=== PATIENT | female | born 1985 | race Caucasian/White ===

== ENCOUNTER 2018-01-02 10:27 | Emergency (ER) | payer OTHER ==
[~2018-01-02 10:27] MED LIST: AZIT-18 PO; BENZ100C4 PO; CLIN300C99 PO; ETON68IM SQ; GUAI-545 PO; HYDR-653 PO; IBUP800T37 PO; MOMR ENA; ONDA4TAB97 PO; OXYC-854 PO; PANT40SU3 PO; PROM12.556 PO; PROM5SYR PO; PSEU120T69 PO
--- NOTE | 2018-01-02 10:30 | ER Report ---
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 Patient reports that the rack likely struck her in the lower part of the eye causing pain and inability to open the eye. Initially, visual acuity wasn't able to be assessed due to patient level of pain. There is no other obvious signs of trauma to the face. REVIEW OF SYSTEMS: Eyes: + right eye pain, mild edema ENT: [No sore throat.] Cardiovascular: [No chest pain, no palpitations.] Respiratory: [No cough, no shortness of breath.] Gastrointestinal: [No abdominal pain, no vomiting.] Genitourinary: [No hematuria.] Musculoskeletal: [No back pain.] Skin: [No rashes.] Neurological: [No headache.] Allergies: Coded Allergies: cephalexin (Verified Allergy, Intermediate, RASH, 01/02/18) Penicillins (Verified Allergy, Mild, UNKNOWN, 01/02/18) Home Meds Active Scripts Ondansetron Hcl (ZOFRAN) 4 Mg Tablet, 4 MG PO Q8H for Nausea, #15 TAB 0 Refills Prov:WALLACE LEVY MD 10/05/16 Pantoprazole Sodium (PROTONIX) 40 Mg Granpkt.dr, 40 MG PO QDAY for 30 Days, #30 TAB 0 Refills Prov:WALLACE LEVY MD 10/05/16 Oxycodone Hcl/Acet 5/325 Mg (ENDOCET 5-325 TABLET) 1 Each Tablet, 1 EACH PO Q6H for PAIN, #4 TAB 0 Refills Prov:WALLACE LEVY MD 10/05/16 Ibuprofen (IBUPROFEN) 800 Mg Tablet, 800 MG PO Q8H, #20 TAB 0 Refills Prov:MARCY FINCH DO 05/12/16 Hydrocodone Bit/Acetaminophen (NORCO 5-325 TABLET) 1 Each Tablet, 1 EACH PO Q4- 6H PRN for PAIN, #20 TAB 0 Refills Prov:MARCY FINCH DO 05/12/16 Reported Medications Citalopram Hydrobromide (CELEXA) 10 Mg Tablet, 10 MG PO QDAY, #5 TAB 10/29/18 Clindamycin Hcl (CLINDAMYCIN HCL) 300 Mg Capsule, 300 MG PO QID, #40 CAPSULE 05/10/16 Discontinued Reported Medications Etonogestrel (NEXPLANON) 68 Mg Implant, 68 MG SQ DIRECTED, IMPLANT 01/12/15 Hx Smoking: No Smoking Status: Never Smoker Exposure to Second Hand Smoke?: Yes (childhood) Hx Substance Use Disorder: No Hx Alcohol Use: Yes (occ) Constitutional Vital Sign - Last 24 Hours 01/02/18 10:31 Temp 98.9 Pulse 77 Resp 14 B/P (MAP) 124/66 Pulse Ox 95 O2 Delivery Room Air Physical Exam General Appearance: The patient is alert, has no immediate need for airway protection and no signs of toxicity. mild distress Eyes: + pain right eye, tearing ENT, Mouth: Mucous membranes are moist. Neurological: No cranial nerve deficits Skin: Warm and dry, no rashes. DIFFERENTIAL DIAGNOSIS: After history and physical exam differential diagnosis was considered for retrobulbar hemorrhage, corneal abrasion, intraocular pressure increase, retinal hemorrhage, vitreous hemorrhage Medical Decision Making EKG/Imaging Imaging ORBITS W/O CONTRAST HISTORY: right eye trauma, r/o retrobulbar hem COMPARISON STUDIES: none TECHNIQUE: Axial images were obtained through the orbits without intravenous contrast. Coronal reformatted images were obtained from the axial source data. One of the following dose optimization techniques was utilized in the performance of this exam: Automated exposure control; adjustment of the mA and/or kV according to the patient's size; or use of an iterative reconstruction technique. Specific details can be referenced in the facility's radiology CT exam operational policy. CONTRAST: None FINDINGS: The examination demonstrates no evidence of fracture of the orbits. Specifically, there is no evidence of orbital floor fracture. The pterygoid plates are intact. There is no evidence of fracture of the zygomatic processes. The globes are unremarkable in appearance. There is no evidence of abnormality of the extraocular muscles. There is no evidence of fluid collection within the orbits. The intraconal fat is unremarkable bilaterally. There is no evidence of enlargement of the superior ophthalmic veins. The visualized intracranial anatomy is unremarkable. IMPRESSION: No significant abnormality identified. The orbits are unremarkable bilaterally. ED Course/Re-evaluation ED Course Patient is a 32-year-old female here status post trauma to the right knee. Patient reportedly struck her eye on a rack while at work today shortly prior to arrival. Patient was noted to have visual acuity of 20/100 in the right eye after proparacaine fluorescein stain was applied. No corneal abrasions were visualized on [place] lamp examination. Intraocular pressure was found to be 10 on examination. Patient was noted to have significant amount of pain behind the eye per patient report though her extraocular muscles were intact she had significant pain with this examination as well. She reported continued blurred vision and a CT scan of the orbits was completed to rule out retrobulbar hemorrhage. CT was negative. I discussed the patient with Dr. Em's office to set up an appointment for 1400. Patient was given an eye patch for protection Decision to Disposition Date: Jan 02, 2018 Decision to Disposition Time: 12:32 Depart Departure Latest Vital Signs Vital Signs Date Time Temp Pulse Resp B/P (MAP) Pulse Ox O2 Delivery O2 Flow Rate FiO2 01/02/18 10:31 98.9 77 14 124/66 95 Room Air Impression: Primary Impression: Eye trauma Condition: Improved Disposition: HOME OR SELF-CARE Departure Forms: ER Transition Record, Medications Reconciliation, Off Work/School Form, School or Work Release?: Work Number of days to be released: 1 Patient Portal Information Patient Instructions: Eye Pain (GEN) Additional Instructions: Please follow-up with Dr. Em at 2 PM. Their phone number is [phone]. Please return promptly if you develop worsening pain, inability to move her eye, increased headache, facial droop. EYAD MARSH DO Jan 02, 2018 10:30
[2018-01-02] MEDS ORDERED: CITA-155 PO (10:35)
[2018-01-02] MEDS ORDERED: PROPARACAI/FLUORESCEIN 5 ML OP DROPS OP ONE (10:40)
[2018-01-02] MEDS ORDERED: IBUPROFEN 800 MG TAB PO ONE (11:50)
--- NOTE | 2018-01-02 12:12 | RADIOLOGY IMAGING REPORT ---
FACILITY: [facility] - [place], [place] PATIENT NAME: Tri Chi : 1985 MR: [id number] V: [id number] EXAM DATE: ORDERING PHYSICIAN: EYAD MARSH TECHNOLOGIST: Location: [facility] Patient: Tri Chi : 1985 Visit/Account:[id number] Date of Sevice: 01/02/2018 ORBITS W/O CONTRAST HISTORY: right eye trauma, r/o retrobulbar hem COMPARISON STUDIES: none TECHNIQUE: Axial images were obtained through the orbits without intravenous contrast. Coronal refo rmatted images were obtained from the axial source data. One of the following dose optimization techniques was utilized in the performance of this exam: Autom ated exposure control; adjustment of the mA and/or kV according to the patient's size; or use of an i terative reconstruction technique. Specific details can be referenced in the facility's radiology C T exam operational policy. CONTRAST: None FINDINGS: The examination demonstrates no evidence of fracture of the orbits. Specifically, there is no eviden ce of orbital floor fracture. The pterygoid plates are intact. There is no evidence of fracture of the zygomatic processes. The globes are unremarkable in appearance. There is no evidence of abnormality of the extraocular mu scles. There is no evidence of fluid collection within the orbits. The intraconal fat is unremarkab le bilaterally. There is no evidence of enlargement of the superior ophthalmic veins. The visualized intracranial anatomy is unremarkable. IMPRESSION: No significant abnormality identified. The orbits are unremarkable bilaterally. Report Dictated By: Krishna Arce at 01/02/2018 12:04 PM Report E-Signed By: Krishna Arce at 01/02/2018 12:07 PM WSN:[id number]
[2018-01-02 12:33] VITALS: BP 120/73
== END 2018-01-02 12:27 | disposition home or self-care (01) ==
LOC: ER 10:45
DX: H57.11 Ocular pain, right eye (principal); W22.8XXA Striking against or struck by other objects, initial encounter
CPT/HCPCS: 70480; 99284

== ENCOUNTER 2018-01-24 15:40 | Emergency (ER) | payer OTHER ==
[~2018-01-24 15:40] MED LIST changes: +CITA-155 PO
[2018-01-24] MEDS ORDERED: NS(*) 0.9% 1000 ML BAG 1,000 ML IV ONE (15:50)
[2018-01-24] MEDS ORDERED: MORPHINE 4 MG/ML SDV IVP ONE (15:50)
[2018-01-24] MEDS ORDERED: ONDANSETRON 4 MG/2 ML VIAL IVP ONE (15:55)
--- NOTE | 2018-01-24 15:55 | ER Report ---
History and Physical Time Seen By MD: 15:45 Hx. of Stated Complaint: ABD PAIN (WALLACE SAMPSON MD) HPI/ROS CHIEF COMPLAINT: Abdominal pain HISTORY OF PRESENT ILLNESS: 32-year-old female developed vomiting last night 2 and initial onset of abdominal pain which was much worse today. She has not had pain like this before. Pain is throughout abdomen and dull pressure. She had one episode of diarrhea and one episode of vomiting this morning. No bloody or black. Pain is 8 out of 10. Does not radiate to back or chest. No prior abdominal surgeries other than tubal ligation. No UTI symptoms. Last menstrual period was 2 days ago and was regular. No fevers, chills, shortness breath, chest pain. Pt was at physician this am for general eval. REVIEW OF SYSTEMS: Constitutional: No fever, no chills. Eyes: No discharge. ENT: No sore throat. Cardiovascular: No chest pain, no palpitations. Respiratory: No cough, no shortness of breath. Gastrointestinal: above Genitourinary: no dysuria Musculoskeletal: No back pain. Skin: No rashes. Neurological: No headache. Remainder of the 14 system rev: Yes (WALLACE SAMPSON MD) Allergies: Coded Allergies: cephalexin (Verified Allergy, Intermediate, RASH, 01/02/18) Penicillins (Verified Allergy, Mild, UNKNOWN, 01/02/18) Home Meds Active Scripts Ondansetron Hcl (ZOFRAN) 4 Mg Tablet, 4 MG PO Q8H for Nausea, #15 TAB 0 Refills Prov:WALLACE LEVY MD 10/05/16 Reported Medications Citalopram Hydrobromide (CELEXA) 10 Mg Tablet, 10 MG PO QDAY, #5 TAB 01/02/18 Discontinued Reported Medications Clindamycin Hcl (CLINDAMYCIN HCL) 300 Mg Capsule, 300 MG PO QID, #40 CAPSULE 05/10/16 Discontinued Scripts Pantoprazole Sodium (PROTONIX) 40 Mg Granpkt.dr, 40 MG PO QDAY for 30 Days, #30 TAB 0 Refills Prov:WALLACE LEVY MD 10/05/16 Oxycodone Hcl/Acet 5/325 Mg (ENDOCET 5-325 TABLET) 1 Each Tablet, 1 EACH PO Q6H for PAIN, #4 TAB 0 Refills Prov:WALLACE LEVY MD 10/05/16 Ibuprofen (IBUPROFEN) 800 Mg Tablet, 800 MG PO Q8H, #20 TAB 0 Refills Prov:MARCY FINCH DO 05/12/16 Hydrocodone Bit/Acetaminophen (NORCO 5-325 TABLET) 1 Each Tablet, 1 EACH PO Q4- 6H PRN for PAIN, #20 TAB 0 Refills Prov:MARCY FINCH DO 05/12/16 Hx Smoking: No Smoking Status: Never Smoker Exposure to Second Hand Smoke?: Yes (childhood) Hx Substance Use Disorder: No Hx Alcohol Use: Yes (occ) (WALLACE SAMPSON MD) Constitutional Vital Sign - Last 24 Hours 01/24/18 01/24/18 01/24/18 01/24/18 15:45 15:46 16:00 16:10 Temp 99.7 Pulse 95 75 Resp 16 B/P (MAP) 123/84 (97) 123/84 93/73 (80) Pulse Ox 97 100 O2 Delivery Room Air 01/24/18 01/24/18 01/24/18 01/24/18 16:30 16:40 17:08 17:10 Pulse 75 70 B/P (MAP) 95/61 (72) 98/54 (69) Pulse Ox 90 93 01/24/18 01/24/18 01/24/18 01/24/18 17:15 17:33 17:45 17:50 Pulse 69 65 ??? B/P (MAP) 99/58 (72) Pulse Ox 94 94 01/24/18 01/24/18 01/24/18 01/24/18 18:00 18:05 18:20 18:30 Pulse 64 60 B/P (MAP) 100/55 (70) 100/56 (71) Pulse Ox 94 94 01/24/18 01/24/18 01/24/18 01/24/18 18:35 18:50 19:00 19:05 Pulse 59 71 67 B/P (MAP) 84/50 (61) Pulse Ox 93 94 93 01/24/18 01/24/18 01/24/18 19:20 19:26 19:53 Temp 99.1 Pulse 59 B/P (MAP) 103/61 (75) Pulse Ox 95 (RAINA GAMINO MD) Physical Exam General Appearance: The patient is alert, has no immediate need for airway protection and no signs of toxicity. Pt tearful. Eyes: Pupils equal and round no pallor or injection. ENT, Mouth: Mucous membranes are moist. Respiratory: There are no retractions, lungs are clear to auscultation. Cardiovascular: Regular rate and rhythm. Gastrointestinal: ttp throughout, guarding, not distended, no massess. RUQ ttp with equivocal apple's, rlq ttp, l side ttp Neurological: alert, oriented, nad Skin: Warm and dry, no rashes. Musculoskeletal: Extremities are nontender, nonswollen and have full range of motion. Pelvic exam - slight discharge, mild cmt, l > r adnex ttp DIFFERENTIAL DIAGNOSIS: After history and physical exam differential diagnosis was considered for abdominal pain including but not limited to appendicitis, cholecystitis, gastritis and urinary tract infection. (WALLACE SAMPSON MD) Medical Decision Making Data Points Result Diagram: 01/24/18 1603 01/24/18 1603 Laboratory Hematology Test 01/24/18 16:03 01/24/18 17:31 01/24/18 17:50 Red Blood Count 4.88 M/uL (4.17-5.56) Mean Corpuscular Volume 88.0 fL (80.0-96.0) Mean Corpuscular Hemoglobin 30.4 pg (26.0-33.0) Mean Corpuscular Hemoglobin Concent 34.6 g/dL (32.0-36.0) Red Cell Distribution Width 13.1 % (11.5-14.5) Mean Platelet Volume 7.9 fL (7.2-11.1) Neutrophils (%) (Auto) 73.1 % (39.4-72.5) Lymphocytes (%) (Auto) 18.3 % (17.6-49.6) Monocytes (%) (Auto) 7.6 % (4.1-12.4) Eosinophils (%) (Auto) 0.4 % (0.4-6.7) Basophils (%) (Auto) 0.6 % (0.3-1.4) Nucleated RBC Relative Count (auto) 0.0 /100WBC Neutrophils # (Auto) 3.5 K/uL (2.0-7.4) Lymphocytes # (Auto) 0.9 K/uL (1.3-3.6) Monocytes # (Auto) 0.4 K/uL (0.3-1.0) Eosinophils # (Auto) 0.0 K/uL (0.0-0.5) Basophils # (Auto) 0.0 K/uL (0.0-0.1) Nucleated RBC Absolute Count (auto) 0.00 K/uL Prothrombin Time 13.5 seconds (12.0-14.4) Prothromb Time International Ratio 1.03 Activated Partial Thromboplast Time 32 seconds (23-35) Sodium Level 138 mmol/L (137-145) Potassium Level 4.1 mmol/L (3.5-5.0) Chloride Level 102 mmol/L (98-107) Carbon Dioxide Level 24 mmol/L (22-31) Blood Urea Nitrogen 15 mg/dl (7-18) Creatinine 0.90 mg/dl (0.52-1.04) Glomerular Filtration Rate Calc > 60.0 Random Glucose 80 mg/dl (75-110) Calcium Level 8.9 mg/dl (8.4-10.2) Total Bilirubin 1.3 mg/dl (0.2-1.3) Aspartate Amino Transf (AST/SGOT) 25 U/L (0-35) Alanine Aminotransferase (ALT/SGPT) 35 U/L (0-56) Alkaline Phosphatase 61 U/L (0-126) Total Protein 7.9 g/dl (6.3-8.2) Albumin 4.2 g/dl (3.5-5.0) Lipase 42 U/L (23-300) Human Chorionic Gonadotropin, Qual Negative (NEGATIVE) Urine Color Yellow Urine Clarity Clear Urine pH 5.0 pH (4.8-9.5) Urine Specific [place] 1.056 Urine Protein Negative mg/dL (NEGATIVE) Urine Glucose (UA) Negative mg/dL (NEGATIVE) Urine Ketones 20 mg/dL (NEGATIVE) Urine Blood Negative (NEGATIVE) Urine Nitrite Negative (NEGATIVE) Urine Bilirubin Negative (NEGATIVE) Urine Urobilinogen Negative mg/dL (0.2-1.9) Urine Leukocyte Esterase Negative (NEGATIVE) Urine RBC None /HPF (0-2/HPF) Urine WBC 1 /HPF (0-5/HPF) Urine Squamous Epithelial Cells Many /LPF (</=FEW) Urine Bacteria Negative /HPF (NONE-FEW) Urine Mucus None /HPF (NONE-FEW) Chemistry Test 11/20/18 16:03 01/24/18 17:31 01/24/18 17:50 White Blood Count 4.8 k/uL (4.5-11.0) Red Blood Count 4.88 M/uL (4.17-5.56) Hemoglobin 14.9 g/dL (12.0-16.0) Hematocrit 42.9 % (34.0-47.0) Mean Corpuscular Volume 88.0 fL (80.0-96.0) Mean Corpuscular Hemoglobin 30.4 pg (26.0-33.0) Mean Corpuscular Hemoglobin Concent 34.6 g/dL (32.0-36.0) Red Cell Distribution Width 13.1 % (11.5-14.5) Platelet Count 184 K/uL (150-450) Mean Platelet Volume 7.9 fL (7.2-11.1) Neutrophils (%) (Auto) 73.1 % (39.4-72.5) Lymphocytes (%) (Auto) 18.3 % (17.6-49.6) Monocytes (%) (Auto) 7.6 % (4.1-12.4) Eosinophils (%) (Auto) 0.4 % (0.4-6.7) Basophils (%) (Auto) 0.6 % (0.3-1.4) Nucleated RBC Relative Count (auto) 0.0 /100WBC Neutrophils # (Auto) 3.5 K/uL (2.0-7.4) Lymphocytes # (Auto) 0.9 K/uL (1.3-3.6) Monocytes # (Auto) 0.4 K/uL (0.3-1.0) Eosinophils # (Auto) 0.0 K/uL (0.0-0.5) Basophils # (Auto) 0.0 K/uL (0.0-0.1) Nucleated RBC Absolute Count (auto) 0.00 K/uL Prothrombin Time 13.5 seconds (12.0-14.4) Prothromb Time International Ratio 1.03 Activated Partial Thromboplast Time 32 seconds (23-35) Glomerular Filtration Rate Calc > 60.0 Calcium Level 8.9 mg/dl (8.4-10.2) Total Bilirubin 1.3 mg/dl (0.2-1.3) Aspartate Amino Transf (AST/SGOT) 25 U/L (0-35) Alanine Aminotransferase (ALT/SGPT) 35 U/L (0-56) Alkaline Phosphatase 61 U/L (0-126) Total Protein 7.9 g/dl (6.3-8.2) Albumin 4.2 g/dl (3.5-5.0) Lipase 42 U/L (23-300) Human Chorionic Gonadotropin, Qual Negative (NEGATIVE) Urine Color Yellow Urine Clarity Clear Urine pH 5.0 pH (4.8-9.5) Urine Specific [place] 1.056 Urine Protein Negative mg/dL (NEGATIVE) Urine Glucose (UA) Negative mg/dL (NEGATIVE) Urine Ketones 20 mg/dL (NEGATIVE) Urine Blood Negative (NEGATIVE) Urine Nitrite Negative (NEGATIVE) Urine Bilirubin Negative (NEGATIVE) Urine Urobilinogen Negative mg/dL (0.2-1.9) Urine Leukocyte Esterase Negative (NEGATIVE) Urine RBC None /HPF (0-2/HPF) Urine WBC 1 /HPF (0-5/HPF) Urine Squamous Epithelial Cells Many /LPF (</=FEW) Urine Bacteria Negative /HPF (NONE-FEW) Urine Mucus None /HPF (NONE-FEW) Coagulation Test 01/24/18 16:03 Prothrombin Time 13.5 seconds Prothromb Time International Ratio 1.03 Activated Partial Thromboplast Time 32 seconds Urinalysis Test 01/24/18 17:31 Urine Color Yellow Urine Clarity Clear Urine pH 5.0 pH (4.8-9.5) Urine Specific [place] 1.056 Urine Protein Negative mg/dL (NEGATIVE) Urine Glucose (UA) Negative mg/dL (NEGATIVE) Urine Ketones 20 mg/dL (NEGATIVE) Urine Blood Negative (NEGATIVE) Urine Nitrite Negative (NEGATIVE) Urine Bilirubin Negative (NEGATIVE) Urine Urobilinogen Negative mg/dL (0.2-1.9) Urine Leukocyte Esterase Negative (NEGATIVE) Urine RBC None /HPF (0-2/HPF) Urine WBC 1 /HPF (0-5/HPF) Urine Squamous Epithelial Cells Many /LPF (</=FEW) Urine Bacteria Negative /HPF (NONE-FEW) Urine Mucus None /HPF (NONE-FEW) (RAINA GAMINO MD) EKG/Imaging Imaging EXAMINATION: Transvaginal pelvic ultrasound with duplex Doppler evaluation. HISTORY: Left greater than right ovarian pain, adnexa tender to palpation. Status post tubal ligation. Pain x1 day; LMP: 01/16/2018 COMPARISON: None. FINDINGS: Uterus: 9.5 cm length x 6.0 cm transverse x 3.8 cm AP. Myometrium: Homogeneous. No focal abnormality. Endometrium: Homogeneous, 5-6 mm in greatest double thickness. Cervix: Negative. Ovaries: Right ovary 2.5 x 2.2 x 1.8 cm, multiple small follicles present Left ovary 2.4 x 2 x 1.9 cm, small follicles are present Blood flow is documented in each ovary by Doppler ultrasound. Free pelvic fluid: None. Pelvic vessels: There prominent pelvic vessels bilaterally. This can be seen in the setting of pelvic congestion syndrome. Bladder: Empty IMPRESSION: 1. Normal sonographic appearance of the ovaries. There is no dominant mass or cyst. No evidence of torsion. 2. Normal sonographic appearance of the endometrium and myometrium. 3. Prominent pelvic vessels bilaterally, this can be seen in the setting of pelvic congestion syndrome which is a chronic condition and unlikely to be the cause of the patient's acute pain. Report Dictated By: Danielle Peterson MD at 01/24/2018 7:14 PM (RAINA GAMINO MD) ED Course/Re-evaluation ED Course Pt presents with undifferentiated, sudden onset abd pain. Given ttp, ct obtained; ct unremark. Rpt eval shows primarily epigastric ttp (c/w pt's symptoms of vomiting, diarrhea, pain with water), and pelvic pain. pelvic exam shows adnex ttp L > R; will US, t/o to Dr Gamino; if neg pt reasonable for d/c (WALLACE SAMPSON MD) ED Course I assumed care of this patient from Dr. Sampson at shift change. Her ultrasound came back showing some congestion of the vasculature of the adnexa, but no other problems. I reviewed the lab results with her and recommended follow-up with gastroenterology for further evaluation. Provided Lortab and Zofran take home packs to help with pain and nausea. See instructions below. Decision to Disposition Date: Jan 24, 2018 Decision to Disposition Time: 19:41 (RAINA GAMINO MD) Depart Departure Latest Vital Signs Vital Signs Date Time Temp Pulse Resp B/P (MAP) Pulse Ox O2 Delivery O2 Flow Rate FiO2 01/24/18 19:53 99.1 01/24/18 19:26 103/61 (75) 01/24/18 19:20 59 95 01/24/18 15:46 16 Room Air (RAINA GAMINO MD) Impression: Primary Impression: Abdominal pain Condition: Improved Disposition: HOME OR SELF-CARE Referrals: GASTROENTEROLOGY Patient Instructions: Abdominal Pain (ED), Pulmonary Nodules (ED) Additional Instructions: We do not know what has been causing your abdominal pain today. Labs and imaging were negative for a cause of acute pain. Rest, increase fluids and stick with a bland diet until you are feeling better. Take Ibuprofen 200mg over the counter tablets as needed for pain. We will give you a couple of doses of a pain medicine called Lortab to use tonight for pain. Consider follow-up with a corporate auditor or other provider who can perform f urther evaluation such as colonoscopy. Problem Qualifiers Primary Impression: Abdominal pain Abdominal location: generalized Qualified Codes: R10.84 - Generalized abdominal pain WALLACE SAMPSON MD Jan 24, 2018 15:55 RAINA GAMINO MD Jan 24, 2018 19:04
[2018-01-24 16:13] LABS: PLATELET COUNT, AUTOMATED 184 K/uL (150-450)
[2018-01-24 16:18] LABS: INR 1.03
--- NOTE | 2018-01-24 16:30 | RADIOLOGY IMAGING REPORT ---
FACILITY: [facility] PATIENT NAME: Tri Chi : 1985 MR: [id number] V: [id number] EXAM DATE: ORDERING PHYSICIAN: WALLACE SAMPSON TECHNOLOGIST: Location: [facility] - [place] Patient: Tri Chi : 1985 Visit/Account:[id number] Date of Sevice: 01/24/2018 EXAMINATION: Portable AP Chest HISTORY: Shortness of breath COMPARISON: 06/27/2015. FINDINGS: The lungs are clear. No focal consolidation or pleural effusion. No pneumothorax. Normal cardiomedi astinal silhouette, with normal heart size and pulmonary vascularity. Visualized osseous structures are unremarkable. IMPRESSION: Negative chest. Report Dictated By: Sammy Burton MD at 01/24/2018 4:25 PM Report E-Signed By: Sammy Burton MD at 01/24/2018 4:26 PM WSN:[id number]
[2018-01-24] MEDS ORDERED: IOPAMIDOL 76% 75 ML INFUS BTL 75 ML ONE (16:47)
--- NOTE | 2018-01-24 17:37 | RADIOLOGY IMAGING REPORT ---
FACILITY: [facility] - [place] PATIENT NAME: Tri Chi : 1985 MR: [id number] V: [id number] EXAM DATE: ORDERING PHYSICIAN: WALLACE SAMPSON TECHNOLOGIST: Location: [facility] Patient: Tri Chi : 1985 Visit/Account:[id number] Date of Sevice: 01/24/2018 ABDOMEN/PELVIS WITH CONTRAST HISTORY: Pain throughout abdomen, nonlocalizing but includes the right lower quadrant TECHNIQUE: Following administration of IV contrast contiguous axial images acquired through the abdom en/pelvis. Coronal and sagittal reformatting also performed.Dose Lowering Technique One of the following dose optimization techniques was utilized in the performance of this exam: Autom ated exposure control; adjustment of the mA and/or kV according to the patient's size; or use of an i terative reconstruction technique. Specific details can be referenced in the facility's radiology C T exam operational policy. CONTRAST: 75 mL [id number] COMPARISON: Abdomen ultrasound February 26, 2016 FINDINGS: Visualized lung bases: There is a 3 mm subpleural noncalcified nodule anterior aspect right middle l obe best seen on image 26 of series 3. The 3 mm noncalcified subpleural nodule lateral aspect of the left lower lobe best seen on image 40 Hepatobiliary: Negative. Spleen: Negative. Adrenals: Negative. Pancreas: Negative. Kidneys ureters or bladder: Negative. Genitalia: Tubal ligation clips are present GI: The appendix is visualized and does not appear inflamed. There is no evidence of bowel obstruct ion or bowel wall thickening Vessels/spaces/nodes: Negative. Bones/soft tissues: Incidental Schmorl's nodes in the lower thoracic spine Additional findings: None pertinent. IMPRESSION: There are two 3 mm subpleural nodules, one in the right middle lobe and one in the left lower lobe as described For multiple nodules measuring less than 6 mm, in a low risk patient (minimal or absent sm oking history, no history of malignancy), no routine followup is recommended. In a high risk patient (smoking or malignancy history), optional 12 month followup can be obtained. Otherwise unremarkable CT of abdomen and pelvis. Specifically the appendix does not appear inflamed Report Dictated By: Juliette Aleman MD at 01/24/2018 5:26 PM Report E-Signed By: Juliette Aleman MD at 01/24/2018 5:34 PM WSN:[id number]
[2018-01-24] MEDS ORDERED: LIDOCAINE 2% VISC SLN 15ML UDC PO ONE (17:45)
[2018-01-24] MEDS ORDERED: MAG HYD/AL HYD/SIMETH 30ML UDC PO ONE (17:45)
--- NOTE | 2018-01-24 19:23 | RADIOLOGY IMAGING REPORT ---
FACILITY: [facility] PATIENT NAME: Tri Chi : 1985 MR: [id number] V: [id number] EXAM DATE: ORDERING PHYSICIAN: WALLACE SAMPSON TECHNOLOGIST: Location: [facility] Patient: Tri Chi : 1985 Visit/Account:[id number] Date of Sevice: 01/24/2018 EXAMINATION: Transvaginal pelvic ultrasound with duplex Doppler evaluation. HISTORY: Left greater than right ovarian pain, adnexa tender to palpation. Status post tubal ligati on. Pain x1 day; LMP: 01/16/2018 COMPARISON: None. FINDINGS: Uterus: 9.5 cm length x 6.0 cm transverse x 3.8 cm AP. Myometrium: Homogeneous. No focal abnormality. Endometrium: Homogeneous, 5-6 mm in greatest double thickness. Cervix: Negative. Ovaries: Right ovary 2.5 x 2.2 x 1.8 cm, multiple small follicles present Left ovary 2.4 x 2 x 1.9 cm , small follicles are present Blood flow is documented in each ovary by Doppler ultrasound. Free pelvic fluid: None. Pelvic vessels: There prominent pelvic vessels bilaterally. This can be seen in the setting of pelvic congestion syndrome. Bladder: Empty IMPRESSION: 1. Normal sonographic appearance of the ovaries. There is no dominant mass or cyst. No evidence of to rsion. 2. Normal sonographic appearance of the endometrium and myometrium. 3. Prominent pelvic vessels bilaterally, this can be seen in the setting of pelvic congestion syndrom e which is a chronic condition and unlikely to be the cause of the patient's acute pain. Report Dictated By: Danielle Peterson MD at 01/24/2018 7:14 PM Report E-Signed By: Danielle Peterson MD at 01/24/2018 7:19 PM WSN:[id number]
[2018-01-24 19:26] VITALS: BP 103/61
[2018-01-24] MEDS ORDERED: ACET/HYDROC 5/325MG TH ER ONLY 2 TAB/BOTTLE PO ONE (19:55)
[2018-01-24] MEDS ORDERED: ONDANSETRON 4 MG ODT TH SL ONE (20:00)
[2018-01-24] MEDS ORDERED: ONDANSETRON 4 MG ODT TABDP SL ONE (20:04)
== END 2018-01-24 20:10 | disposition home or self-care (01) ==
LOC: ER 15:51
DX: R10.84 Generalized abdominal pain (principal)
CPT/HCPCS: 71045; 81001; 83690; 84703; 85025; 85610; 85730; 87491; 87591; 96361; 96374; 96375; 99284; J2270; J2405; J7030; Q9967; S0119; 74177; 76830; 82040; 82247; 82310; 82374; 82435; 82565; 82947; 84075; 84132; 84155; 84295; 84450; 84460; 84520

== ENCOUNTER 2018-04-25 11:41 | Emergency (ER) | payer OTHER ==
--- NOTE | 2018-04-25 12:46 | ER Report ---
History and Physical Time Seen By MD: 11:42 Hx. of Stated Complaint: pt cut left middle finger on knife HPI/ROS CHIEF COMPLAINT: Cut finger with a knife HISTORY OF PRESENT ILLNESS: 33 year old female presents to ED with avulsion to left middle finger on de la cruz surface of distal phalynx. Patient reports that she cut it while cutting sweet potatoes. 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 Reports that this happened approximately 20 minutes ago. Reports pain is 6-7 out of 10. Denies talking anything for the pain. REVIEW OF SYSTEMS: Respiratory: [No cough, no dyspnea.] Cardiovascular: [No chest pain, no palpitations.] Gastrointestinal: [No nausea, vomiting, no abdominal pain.] Musculoskeletal: [No back pain.] Integumentary: Bleeding of palmar surface of distal phalynx of left middle finger due to avulsion. Reports decreased mobility of distal interphalangeal joint due to pain and swelling. Allergies: Coded Allergies: cephalexin (Verified Allergy, Intermediate, RASH, 01/02/18) Penicillins (Verified Allergy, Mild, UNKNOWN, 01/02/18) Home Meds Active Scripts Sulfamethoxazole/Trimet 800-160 Mg Tab (BACTRIM DS TABLET) 1 Each Tablet, 1 TAB PO Q12H, #14 TAB Prov:LEA COFFEY 04/25/18 Ondansetron Hcl (ZOFRAN) 4 Mg Tablet, 4 MG PO Q8H for Nausea, #15 TAB 0 Refills Prov:WALLACE LEVY MD 10/05/16 Reported Medications Citalopram Hydrobromide (CELEXA) 10 Mg Tablet, 10 MG PO QDAY, #5 TAB 01/02/18 Past Medical/Surgical History Patient reports hx of tubal ligation in 2016. Last tetanus vaccination was in 2011. Reviewed Nurses Notes: Yes Old Medical Records Reviewed: Yes Hx Smoking: No Smoking Status: Never Smoker Exposure to Second Hand Smoke?: Yes (childhood) Hx Substance Use Disorder: No Hx Alcohol Use: Yes (occ) Constitutional Vital Sign - Last 24 Hours 04/25/18 04/25/18 11:46 13:00 Temp 98.1 Pulse 75 Resp 16 B/P (MAP) 130/76 128/76 (93) Pulse Ox 94 O2 Delivery Room Air Physical Exam General Appearance: The patient is alert, has no immediate need for airway protection and no current signs of toxicity. Respiratory: Chest is non tender, lungs are clear to auscultation. Cardiac: regular rate and rhythm Gastrointestinal: Abdomen is soft and non tender, no masses, bowel sounds normal. Musculoskeletal: Left middle finger with erythema at the distal phalynx. Extremities have full range of motion and are non tender. Skin: Avulsion of skin to left middle finger. Avulsion is circular, approximately 0.5cm in diameter with cut down to the subcutaneous tissue. Bleeding has lessened since patient has been here, however, bleeding increases with movement of the finger and touching the wound. Reports decreased sensation with pin prick on the distal end of the finger. DIFFERENTIAL DIAGNOSIS: After history and physical exam differential diagnosis was considered for avulsion of skin. Medical Decision Making ED Course/Re-evaluation ED Course Patient admitted to ED. History and physical were obtained. Performed review of systems and physical exam of finger. Patient has avulsion to the skin on the pad of the left 3rd finger. There is no tissue to suture. Discussed plan of care with patient. Injected lidocaine with bupivacaine to medial and lateral aspects of proximal phalynx. respiratory therapy technician cleaned wound and placed Turnicot on proximal pahlynx of middle finger. Bleeding stopped. Cautery used on wound bed to stop bleeding. Turnicot cut off. Wound dressed. Patient discharged home with prophylaxis with antibiotics, care instructions, to take tylenol/ibuprofen for pain, and to watch for s/s of infection. Decision to Disposition Date: Apr 25, 2018 Decision to Disposition Time: 13:00 Depart Departure Latest Vital Signs Vital Signs Date Time Temp Pulse Resp B/P (MAP) Pulse Ox O2 Delivery O2 Flow Rate FiO2 04/25/18 13:00 128/76 (93) 04/25/18 11:46 98.1 75 16 94 Room Air Impression: Primary Impression: Avulsion of skin of finger Condition: Improved Disposition: HOME OR SELF-CARE New Scripts Sulfamethoxazole/Trimet 800-160 Mg Tab (BACTRIM DS TABLET) 1 Each Tablet 1 TAB PO Q12H, #14 TAB Prov: LEA COFFEY ZAHRA 04/25/18 Patient Instructions: Skin Avulsion (ED) Additional Instructions: Monitor for signs of infection; redness, swelling, heat, discharge, increasing pain or red streaking. Keep wound covered for the next 4-5 days. Follow up in the ER with any concerns. Take Tylenol or Ibuprofen as needed for pain. Get plenty if rest. Keep the wound clean. Problem Qualifiers Primary Impression: Avulsion of skin of finger Encounter type: initial encounter Qualified Codes: S61.209A - Unspecified open wound of unspecified finger without damage to nail, initial encounter LEA COFFEY Apr 25, 2018 12:46
[2018-04-25] MEDS ORDERED: DIPHTH/TETANUS/ACEL. PERTUSSIS IM ONLY ONE (12:50)
[2018-04-25] MEDS ORDERED: SULF-198 PO (12:58)
[2018-04-25 13:00] VITALS: BP 128/76
== END 2018-04-25 13:23 | disposition home or self-care (01) ==
LOC: ER 11:50
DX: S61.203A Unspecified open wound of left middle finger without damage to nail, initial encounter (principal); W26.0XXA Contact with knife, initial encounter
CPT/HCPCS: 12001; 90471; 90715; 96360; 96361; 99283; 99285

== ENCOUNTER 2018-05-01 10:14 | Emergency (ER) | payer OTHER ==
[~2018-05-01 10:14] MED LIST changes: +SULF-198 PO
[2018-05-01 10:18] VITALS: BP 111/61
--- NOTE | 2018-05-01 10:19 | ER Report ---
History and Physical Time Seen By MD: 10:18 HPI/ROS CHIEF COMPLAINT: Left 3rd digit pain HISTORY OF PRESENT ILLNESS: Patient is a 33-year-old female here with complaints of left 3rd digit pain. Patient was evaluated on the for a finger laceration and was placed on Bactrim. Patient reports that the pain was improved however today she accidentally slammed her finger into a car door and then subsequently pinched the finger while at work between 2 boxes. Patient reports significant pain at the site. Patient is neurovascularly intact and hemostasis was intact. Denies further injury at this time. REVIEW OF SYSTEMS: Constitutional: No fever, no chills. Musculoskeletal: + left third digit pain Skin: No rashes. Neurological: NV intact Allergies: Coded Allergies: cephalexin (Verified Allergy, Intermediate, RASH, 01/02/18) Penicillins (Verified Allergy, Mild, UNKNOWN, 01/02/18) Home Meds Active Scripts Sulfamethoxazole/Trimet 800-160 Mg Tab (BACTRIM DS TABLET) 1 Each Tablet, 1 TAB PO Q12H, #14 TAB Prov:LEA COFFEY 04/25/18 Ondansetron Hcl (ZOFRAN) 4 Mg Tablet, 4 MG PO Q8H for Nausea, #15 TAB 0 Refills Prov:WALLACE LEVY MD 10/05/16 Reported Medications Citalopram Hydrobromide (CELEXA) 10 Mg Tablet, 10 MG PO QDAY, #5 TAB 01/02/18 Hx Smoking: No Smoking Status: Never Smoker Exposure to Second Hand Smoke?: Yes (childhood) Hx Substance Use Disorder: No Hx Alcohol Use: Yes (occ) Constitutional Vital Sign - Last 24 Hours 05/01/18 10:18 Temp 98.2 Pulse 88 Resp 16 B/P (MAP) 111/61 Pulse Ox 94 Physical Exam General Appearance: The patient is alert, has no immediate need for airway protection and no signs of toxicity. Uncomfortable appearing Neurological: Neurovascularly intact in the distal digit Skin: No rashes or active bleeding Musculoskeletal: Tenderness on palpation of the left 3rd distal digit. DIFFERENTIAL DIAGNOSIS: After history and physical exam differential diagnosis was considered for fracture, contusion, laceration Medical Decision Making EKG/Imaging Imaging Location: [facility] Patient: Tri Chi : 1985 Visit/Account:[id number] Date of Sevquinn: 05/01/2018 FINGER LEFT 3RD DIGIT Given history: Trauma COMPARISON STUDIES: NONE FINDINGS: Osseous structures: Intact without evidence of fracture . Joints: normal . Soft tissues: There is a small skin defect seen at the tip of the left third finger. No radiopaque foreign body seen. IMPRESSION: Laceration tip of the third finger. Negative for fracture. ED Course/Re-evaluation ED Course Patient is a 33-year-old female here with complaints of pain after catching her finger in a car door and then subsequently pinching it between 2 boxes today with a prior history of laceration to the finger. X-ray imaging showed no acute fracture. I performed a digital block using 4 mL of 1% lidocaine without epinephrine. Patient was neurovascularly intact. Return precautions provided Procedure Digital block of the 3rd left finger was performed using 4 mL of 1% lidocaine without epinephrine. I performed a ring block at the base of the digit. Patient tolerated procedure well. Decision to Disposition Date: May 01, 2018 Decision to Disposition Time: 11:13 Depart Departure Latest Vital Signs Vital Signs Date Time Temp Pulse Resp B/P (MAP) Pulse Ox O2 Delivery O2 Flow Rate FiO2 05/01/18 10:18 98.2 88 16 111/61 94 Impression: Primary Impression: Finger contusion Condition: Improved Disposition: HOME OR SELF-CARE Patient Instructions: Contusion in Adults (ED) Additional Instructions: No acute fractures identified on x-ray imaging. Please monitor for signs of infection. EYAD MARSH DO May 01, 2018 10:18
--- NOTE | 2018-05-01 10:53 | RADIOLOGY IMAGING REPORT ---
FACILITY: [facility] PATIENT NAME: Tri Chi : 1985 MR: [id number] V: [id number] EXAM DATE: ORDERING PHYSICIAN: EYAD MARSH TECHNOLOGIST: [place] [facility] [place] Patient: Tri Chi : 1985 Visit/Account:[id number] Date of Sevice: 05/01/2018 FINGER LEFT 3RD DIGIT Given history: Trauma COMPARISON STUDIES: NONE FINDINGS: Osseous structures: Intact without evidence of fracture . Joints: normal . Soft tissues: There is a small skin defect seen at the tip of the left third finger. No radiopaque foreign body seen. IMPRESSION: Laceration tip of the third finger. Negative for fracture. Report Dictated By: Otilio Barker MD at 05/01/2018 10:46 AM Report E-Signed By: Otilio Barker MD at 05/01/2018 10:48 AM WSN:[email or web address]
[2018-05-01] MEDS ORDERED: IBUPROFEN 800 MG TAB PO ONE (11:35)
== END 2018-05-01 11:31 | disposition home or self-care (01) ==
LOC: ER 10:33
DX: S60.032A Contusion of left middle finger without damage to nail, initial encounter (principal)
CPT/HCPCS: 99283

== ENCOUNTER 2018-10-20 14:51 | Emergency (ER) | payer OTHER ==
[~2018-10-20 14:51] MED LIST changes: -PROM12.556 PO; +PROM12.557 PO
--- NOTE | 2018-10-20 14:57 | ER Report ---
History and Physical Time Seen By MD: 14:53 HPI/ROS CHIEF COMPLAINT: headache and vomiting HISTORY OF PRESENT ILLNESS: Patient is a 33 yo F who presents with a constant 7/10 headache, dizziness and vomiting. She noted a "head change" when she awoke this morning at 8 am which continued to worsen at work. She began to note pressure in her head which developed into a headache involving her entire head. She then developed nausea and vomiting, a total of 4 episodes before arrival to the ED. She admits to photosensitivity. Denies radiation to neck, no dental pain. She denies change in mentation and no weakness of her extremities. Denies trauma. She notes sleep deprivation recently, with little sleep last night. She denies any recent travel nor sick contacts, but was [place]. Also notes a rash in her medial upper arms that began 3 days ago. Reports history of sensitive skin and has not used any new detergents. REVIEW OF SYSTEMS: Constitutional: No fever, no chills. Eyes: No discharge. ENT: No sore throat. Cardiovascular: No chest pain, no palpitations. Respiratory: No cough, no shortness of breath. Gastrointestinal: No abdominal pain, + vomiting, + diarrhea 2 days ago Genitourinary: No hematuria. Musculoskeletal: No back pain. Skin: bilateral axillae Neurological: as in [facility] Allergies: Coded Allergies: cephalexin (Verified Allergy, Intermediate, RASH, 10/20/18) Penicillins (Verified Allergy, Mild, UNKNOWN, 10/20/18) Home Meds Active Scripts Ondansetron Hcl (ZOFRAN) 4 Mg Tablet, 4 MG PO Q4-6H PRN for prn, #20 TAB 0 Refills Prov:DAVID CROCKER PLANT MAINTENANCE ENGINEER-BC 10/20/18 Reported Medications Citalopram Hydrobromide (CELEXA) 10 Mg Tablet, 10 MG PO QDAY, #5 TAB 01/02/18 Discontinued Scripts Sulfamethoxazole/Trimet 800-160 Mg Tab (BACTRIM DS TABLET) 1 Each Tablet, 1 TAB PO Q12H, #14 TAB Prov:LEA COFFEY PLANT MAINTENANCE ENGINEER 04/25/18 Ondansetron Hcl (ZOFRAN) 4 Mg Tablet, 4 MG PO Q8H for Nausea, #15 TAB 0 Refills Prov:WALLACE LEVY MD 10/05/16 Past Medical/Surgical History The patient has a past medical and surgical history of migraines, depression, tubal ligation. Reviewed Nurses Notes: Yes Hx Smoking: No Smoking Status: Never Smoker Exposure to Second Hand Smoke?: Yes (childhood) Hx Substance Use Disorder: No Hx Alcohol Use: Yes (occ) Constitutional Vital Sign - Last 24 Hours 10/20/18 10/20/18 10/20/18 10/20/18 15:01 15:55 16:44 17:57 Temp 98.2 Pulse 62 70 62 74 Resp 18 18 18 18 B/P (MAP) 106/45 109/52 (71) 102/68 (79) 103/66 (78) Pulse Ox 99 95 92 96 O2 Delivery Room Air Room Air Room Air Room Air Physical Exam General Appearance: The patient is alert, has no immediate need for airway protection. Ill and uncomfortable appearing Eyes: Pupils equal and round no pallor or injection. EOMs intact. ENT, Mouth: Mucous membranes are moist. Respiratory: There are no retractions, lungs are clear to auscultation. Cardiovascular: Regular rate and rhythm. Gastrointestinal: Abdomen is soft and non tender, no masses, bowel sounds normal. Neurological: No focal neurological deficits, moving all extremities Skin: Warm and dry, mildly erythematous, rough patch on bilateral medial upper arms, blanchable. Musculoskeletal: Neck is supple non tender, no increase in pain with flexion/extension. Extremities are nontender, nonswollen and have full range of motion. DIFFERENTIAL DIAGNOSIS: After history and physical exam differential diagnosis was considered for migraine, tension headache, vertigo, meningitis, intracranial mass, intracranial bleed, trauma, sinusitis, gastritis. Medical Decision Making Data Points Result Diagram: 10/20/18 1456 10/20/18 1456 Laboratory Hematology Test 10/20/18 14:56 White Blood Count 7.3 k/uL (4.5-11.0) Red Blood Count 4.60 M/uL (4.17-5.56) Hemoglobin 14.2 g/dL (12.0-16.0) Hematocrit 40.8 % (34.0-47.0) Mean Corpuscular Volume 88.7 fL (80.0-96.0) Mean Corpuscular Hemoglobin 31.0 pg (26.0-33.0) Mean Corpuscular Hemoglobin Concent 34.9 g/dL (32.0-36.0) Red Cell Distribution Width 12.8 % (11.5-14.5) Platelet Count 230 K/uL (150-450) Mean Platelet Volume 8.0 fL (7.2-11.1) Neutrophils (%) (Auto) 63.7 % (39.4-72.5) Lymphocytes (%) (Auto) 27.6 % (17.6-49.6) Monocytes (%) (Auto) 6.9 % (4.1-12.4) Eosinophils (%) (Auto) 1.3 % (0.4-6.7) Basophils (%) (Auto) 0.5 % (0.3-1.4) Nucleated RBC Relative Count (auto) 0.1 /100WBC Neutrophils # (Auto) 4.7 K/uL (2.0-7.4) Lymphocytes # (Auto) 2.0 K/uL (1.3-3.6) Monocytes # (Auto) 0.5 K/uL (0.3-1.0) Eosinophils # (Auto) 0.1 K/uL (0.0-0.5) Basophils # (Auto) 0.0 K/uL (0.0-0.1) Nucleated RBC Absolute Count (auto) 0.01 K/uL Chemistry Test 10/20/18 14:56 Sodium Level 138 mmol/L (137-145) Potassium Level 3.5 mmol/L (3.5-5.0) Chloride Level 104 mmol/L (98-107) Carbon Dioxide Level 25 mmol/L (22-31) Blood Urea Nitrogen 14 mg/dl (7-18) Creatinine 0.90 mg/dl (0.52-1.04) Glomerular Filtration Rate Calc > 60.0 Random Glucose 97 mg/dl (75-110) Calcium Level 9.3 mg/dl (8.4-10.2) Total Bilirubin 0.7 mg/dl (0.2-1.3) Aspartate Amino Transf (AST/SGOT) 30 U/L (0-35) Alanine Aminotransferase (ALT/SGPT) 38 U/L (0-56) Alkaline Phosphatase 81 U/L (0-126) Total Protein 8.0 g/dl (6.3-8.2) Albumin 4.5 g/dl (3.5-5.0) EKG/Imaging Imaging FACILITY: [facility] [place] PATIENT NAME: Tri Chi : 1985 MR: [id number] V: [id number] EXAM DATE: ORDERING PHYSICIAN: DAVID CROCKER TECHNOLOGIST: Location: [facility] Patient: Tri Chi : 1985 Visit/Account:[id number] Date of Sevice: 10/20/2018 EXAMINATION: CT head without IV contrast HISTORY: Headache, nausea, vomiting COMPARISON: None. TECHNIQUE: Contiguous axial images were obtained from the skull base to the vertex without intravenous contrast. Sagittal and coronal reformatted images are also submitted. One of the following dose optimization techniques was utilized in the performance of this exam: Automated exposure control; adjustment of the mA and/or kV according to the patient's size; or use of an iterative reconstruction technique. Specific details can be referenced in the facility's radiology CT exam operational policy. FINDINGS: Brain volume: Normal. Ventricles: Normal. Acute ischemic changes: None. Hemorrhage: None. Masses/edema: None. Jefferson-white: Negative. White matter: Normal. Vessels: Negative. Extra-axial: Negative. Calvarium/scalp: Negative. Skull base/visualized face: Negative. Visualized sinuses/orbits: Negative. IMPRESSION: No intracranial mass lesion or hemorrhage. No CT evidence of acute infarct. Report Dictated By: GUERO GUADARRAMA at 10/20/2018 4:11 PM Report E-Signed By: GUERO GUADARRAAM at 10/20/2018 4:14 PM WSN:[id number] ED Course/Re-evaluation Clinical Indication for ER IV: Hydration, IV Access ED Course The patient was admitted to room. A history of physical were obtained. Differential diagnoses were considered. An IV was started. A CBC, CMP were collected. A 1 L normal saline bolus [address] of the head was negative for any acute intracranial pathology. Lab studies unremarkable. Vital signs stable, afebrile. I did review the results with the patient, we did discuss the potential causes for headache, one of which would be meningitis, as the patient was not febrile, normal lab studies and an improving headache we decided to forego the lumbar puncture. She was given 12.5 mg IV Phenergan, 25 mg IV Benadryl, 10 mg IV Decadron, she did have mild improvement of her headache, after the negative CT she was given 50 mg IV Toradol which did seem to improve her headache she was also given 25 mg by mouth meclizine and she was having dizziness. The dizziness did improve, we discussed the Amandeep maneuver, the patient decided to take the information and go home at this time. I did watch the patient ambulate to the bathroom, she did have a steady gait. She was encouraged to follow-up with her PCP within one week for reevaluation, return to the ER for any concerns or worsening symptoms, she was agreeable with this plan of care and discharged home. Decision to Disposition Date: Oct 20, 2018 Decision to Disposition Time: 17:57 Depart Departure Latest Vital Signs Vital Signs Date Time Temp Pulse Resp B/P (MAP) Pulse Ox O2 Delivery O2 Flow Rate FiO2 10/20/18 17:57 74 18 103/66 (78) 96 Room Air 10/20/18 15:01 98.2 Impression: Primary Impression: Head ache Additional Impressions: Nausea & vomiting Vertigo Condition: Improved Disposition: HOME OR SELF-CARE New Scripts Ondansetron Hcl (ZOFRAN) 4 Mg Tablet 4 MG PO Q4-6H PRN for prn, #20 TAB 0 Refills Prov: DAVID CROCKER 10/20/18 Patient Instructions: Acute Headache (ED), Vertigo (ED) Additional Instructions: Lab work and head CT were negative for any concerning findings. Please use Zofran for nausea and vomiting. You can try the Amandeep maneuver or the Jennifer Foster maneuver for dizziness. You may also try meclizine which is over the counter for dizziness, may cause drowsiness. Please follow up with your PCP within 7 days for re-evaluation. If you develop fever, worsening headaches, visual changes or other concerning symptoms please return to the emergency department. Problem Qualifiers Primary Impression: Head ache Headache type: unspecified Headache chronicity pattern: acute headache Intractability: not intractable Qualified Codes: R51 - Headache Additional Impressions: Nausea & vomiting Vomiting type: unspecified Vomiting Intractability: non-intractable Qualified Codes: R11.2 - Nausea with vomiting, unspecified DAVID CROCKER- Oct 20, 2018 14:57
[2018-10-20] MEDS ORDERED: NS(*) 0.9% 1000 ML BAG 1,000 ML IV ONE ×2 (15:30→16:30)
[2018-10-20] MEDS ORDERED: DEXAMETHASONE SOD PHOS 10MG/ML IVP ONE (15:30)
[2018-10-20] MEDS ORDERED: diphenhydr DIALYSIS 50 MG/ML IVP PRN (15:30)
[2018-10-20] MEDS ORDERED: PROMETHAZINE 25 MG/ML 1 ML AMP IVP ONE (15:30)
[2018-10-20] MEDS ORDERED: diphenhydrAMINE 50 MG/ML VIAL IVP ONE (15:40)
[2018-10-20 15:41] LABS: PLATELET COUNT, AUTOMATED 230 K/uL (150-450)
--- NOTE | 2018-10-20 16:23 | RADIOLOGY IMAGING REPORT ---
FACILITY: [facility] - [place] PATIENT NAME: Tri Chi : 1985 MR: [id number] V: [id number] EXAM DATE: ORDERING PHYSICIAN: DAVID CROCKER TECHNOLOGIST: Location: [facility] Patient: Tri Chi : 1985 Visit/Account:[id number] Date of Sevice: 10/20/2018 EXAMINATION: CT head without IV contrast HISTORY: Headache, nausea, vomiting COMPARISON: None. TECHNIQUE: Contiguous axial images were obtained from the skull base to the vertex without intraven ous contrast. Sagittal and coronal reformatted images are also submitted. One of the following dose optimization techniques was utilized in the performance of this exam: Autom ated exposure control; adjustment of the mA and/or kV according to the patient's size; or use of an i terative reconstruction technique. Specific details can be referenced in the facility's radiology C T exam operational policy. FINDINGS: Brain volume: Normal. Ventricles: Normal. Acute ischemic changes: None. Hemorrhage: None. Masses/edema: None. Jefferson-white: Negative. White matter: Normal. Vessels: Negative. Extra-axial: Negative. Calvarium/scalp: Negative. Skull base/visualized face: Negative. Visualized sinuses/orbits: Negative. IMPRESSION: No intracranial mass lesion or hemorrhage. No CT evidence of acute infarct. Report Dictated By: GUERO GUADARRAMA at 10/20/2018 4:11 PM Report E-Signed By: GUERO GUADARRAMA at 10/20/2018 4:14 PM WSN:[id number]
[2018-10-20] MEDS ORDERED: MECLIZINE HCL 25 MG TAB PO ONE (16:30)
[2018-10-20] MEDS ORDERED: KETOROLAC 15 MG/ML VIAL IVP ONE (16:30)
[2018-10-20 17:57] VITALS: BP 103/66
[2018-10-20] MEDS ORDERED: ONDA4TAB97 PO (18:05)
== END 2018-10-20 18:40 | disposition home or self-care (01) ==
LOC: ER 14:57
DX: R51 Headache (principal); R11.2 Nausea with vomiting, unspecified; R42 Dizziness and giddiness
CPT/HCPCS: 70450; 85025; 96361; 96374; 96375; 99284; J1100; J1200; J1885; J2550; J7030; J8597; 82040; 82247; 82310; 82374; 82435; 82565; 82947; 84075; 84132; 84155; 84295; 84450; 84460; 84520